=== PATIENT | female | born 1980 | race Caucasian/White ===

== ENCOUNTER 2018-08-14 01:02 | Day surgery (SDC) | payer OTHER ==
[2018-08-14] VITALS (10 sets, daily range): BP systolic 101–115; BP diastolic 66–83
[~2018-08-14] VITALS: Ht 167.6 cm; Wt 73.9 kg
[~2018-08-14 01:02] MED LIST: ALBU8.5H IH; ASPI-1471 PO; BIOT10005 PO; CETI10CA8 PO; FOLI-91 PO; GABA-549 PO; LACT1CAP6 PO
[2018-08-14] MEDS ORDERED: FAMOTIDINE 20 MG/50 ML PREMIX IVPB ONE (06:00)
[2018-08-14] MEDS ORDERED: NORMOSOL R SOLN(*) 1000 ML BAG 1,000 ML IV PRN (06:00)
[2018-08-14] MEDS ORDERED: MIDAZOLAM 2 MG/2 ML VIAL IVP PRN (06:00)
[2018-08-14] MEDS ORDERED: LIDOCAINE/SOD BICARB 8.4% SYR ID ONE (06:00)
[2018-08-14] MEDS ORDERED: ceFAZolin(*) 1 GM VIAL 1 GM in NS(*) 0.9% 100 ML ADDVANT BAG 100 ML IVPB ONE (06:00)
[2018-08-14] MEDS ORDERED: CELECOXIB 200 MG CAP PO ONE (06:00)
[2018-08-14] MEDS ORDERED: ROPIVACAINE 0.2% 20 ML VIAL ONE ×2 (06:36→06:47)
[2018-08-14] MEDS ORDERED: fentaNYL CITR 100 MCG/2 ML AMP ONE ×2 (06:42→08:21)
[2018-08-14] MEDS ORDERED: LIDOCAINE 2% IV 100 MG/5ML SYR ONE (06:43)
[2018-08-14] MEDS ORDERED: PROPOFOL EMUL(*) 10MG/ML 20 ML 60 ML ONE (06:44)
[2018-08-14] MEDS ORDERED: DEXAMETHASONE SOD 4 MG/ML VIAL ONE (06:53)
[2018-08-14] MEDS ORDERED: KETOROLAC 30 MG/ML VIAL ONE (06:54)
[2018-08-14] MEDS ORDERED: ONDANSETRON 4 MG/2 ML VIAL ONE (06:54)
[2018-08-14] MEDS ORDERED: PROPOFOL EMUL(*) 10MG/ML 20 ML 20 ML ONE (07:35)
[2018-08-14] MEDS ORDERED: HYDR-385 PO (08:08)
--- NOTE | 2018-08-14 09:29 | OPERATIVE REPORT 1 ---
EVENT DATE: August 14, 2018 SURGEON: Brayden Solorio MD ANESTHESIOLOGIST: Saúl Patel MD ANESTHESIA: General, LMA NURSING ASSOC: Ezio Jones PA-C PREOPERATIVE DIAGNOSIS Loose fragment within the knee as well as cartilage damage in the left knee on the medial femoral condyle and also a lateral meniscus tear and synovitis. POSTOPERATIVE DIAGNOSIS Loose fragment within the knee as well as cartilage damage in the left knee on the medial femoral condyle and also a lateral meniscus tear and synovitis. PROCEDURE PERFORMED Left knee arthroscopy with loose metal fragment removal as well as chondroplasty and then microfracture associated with this and minor synovectomy throughout the joint. FINDINGS The patient had cartilage damage throughout the joint and had a loose kind of metal spec that was in the front part of the joint where the previous microfracture had been performed and some cartilage damage throughout the entire knee and large synovitic folds. ESTIMATED BLOOD LOSS Minimal. DRAINS None COMPLICATIONS None. IMPLANTS USED Nonapplicable. SPECIMENS None. TOURNIQUET TIME About 34 minutes. INDICATIONS AND HISTORY This patient is a 37-year-old female who had underwent a left knee arthroscopy before and had some pain and irritation that continued to go along with it. An MRI indicated that there might be a loose metal fragment within the knee itself and so therefore she presented to my clinic for evaluation and she felt like she had a clicking and popping associated with the front part of her knee, and so therefore we got her set up to do a left knee arthroscopy with chondroplasty, synovectomy and removal of the loose fragment. The risk and benefits were discussed with the patient and informed consent was obtained at the last clinic visit. DESCRIPTION OF PROCEDURE The patient was brought to the operating room and she and the procedure were both verified. She was placed supine on the operative table and induced and intubated by anesthesia. The left lower extremity was then prepped and draped in the usual fashion and a timeout was observed verifying the correct patient and procedure. The standard incisions were made and utilized the old incisions from the prior arthroscopy. The scope was inserted into the lateral side and then the working portal was established on the medial side. Once I got into the knee, I was able to do a diagnostic partial arthroscopy where there was some fraying and irritation associated with a medial plica and a large fold of scar tissue over this area. Once I was able to remove this fold of scar tissue, I had better access to the medial femoral condyle where there was two separate lesions. There was one a little bit more towards the anterior aspect of the femoral condyle on the medial side which had some just basic cartilage damage and then there was larger lesion just directly on the weight bearing portion of the medial femoral condyle where there was kind of an odd, finch type colored cartilage on this area. I ended up taking this down and finding a small metal spec within this area, not a large piece of metal but a couple of metal specs in this area. I was then able to debride this. Unfortunately, it left the cartilage exposed in this area, so I did poke a couple of holes with the microfracture in this area in order to facilitate further growth of the cartilage in this area. I then went into the medial compartment completely and I probed the posterior aspect of the medial meniscus and looked in the posterior aspect and there was no signs of loose fragments or problems associated with this. I then went into the essential pivot where the ACL and PCL were stable to probe and there was just a little bit of frayed and irritated tissue associated with this, so I cleaned it up with the suction shaver. I then went into the lateral compartment where I did clean up a little bit of the posterior aspect of the lateral meniscus where there was a small amount of fraying and some cartilage damage on the proximal tibia. I was then able to also clean up a little bit of fraying on the inner surface of the meniscus towards the anterior aspect where there was a little bit of tearing associated with this, but no major signs of full thickness tearing. I then probed the lateral meniscus and the popliteus and there were no signs of issues associated with this. I then switched portals and viewed from the medial side and then took off a large lateral plica over this area where it appeared to be rubbing on the distal femoral condyle and some scar tissue over this area. Once I removed this, everything looked significantly better with flexion and extension and I was able to probe and view all the way to the posterior aspect of the knee and there were no signs of loose fragments even after milking maneuver. I then removed all instrumentation, drained the fluid out of the knee, closed the portal sites with a 4-0 Monocryl in an interrupted subcuticular fashion. It was then anesthetized with Ropivacaine and dressed with Steri-Strips, gauze 4 x 4's, and a soft dressing and the patient was awakened, extubated, and transferred to the PACU in stable condition. PRAVEENA
[2018-08-14] MEDS ORDERED: APAP/HYDROCODONE 325/5 TAB PO ONE (09:30)
== END 2018-08-14 09:01 | disposition home or self-care (01) ==
LOC: OR 01:02
PROVIDERS: ATTEND Orthopaedic Surgery
DX: S83.282A Other tear of lateral meniscus, current injury, left knee, initial encounter (principal); Z18.10 Retained metal fragments, unspecified; S83.92XA Sprain of unspecified site of left knee, initial encounter
CPT/HCPCS: 29879; J0690; J1100; J1885; J2001; J2405; J2704; J2795; J3010; J3490; J7050